=== PATIENT | female | born 2000 | race Caucasian/White ===

== ENCOUNTER 2022-07-29 20:34 | Emergency (ER) | payer OTHER ==
--- NOTE | 2022-07-29 21:40 | NUR ---
CALLED TO TRIAGE, NO ANSWER
--- NOTE | 2022-07-29 22:00 | NUR ---
CALLED TO TRIAGE, NO ANSWER
--- NOTE | 2022-07-29 22:20 | NUR ---
CALLED TO TRIAGE, NO ANSWER. PT LWBS
== END 2022-07-29 21:40 | disposition left against medical advice (07) ==
LOC: MED 20:34
DX: O26.891 Other specified pregnancy related conditions, first trimester (principal); R10.9 Unspecified abdominal pain